=== PATIENT | male | born 1945 | race Caucasian/White ===

== ENCOUNTER → 2021-11-06 11:33 | Outpatient (CLI) | payer MEDICARE, OTHER, SELFPAY ==
--- NOTE | 2021-11-06 11:46 | DI.CT.S_ITS ---
PROCEDURE: CT SINUS SCREEN WO CON INDICATIONS: Chronic pansinusitis TECHNIQUE: Noncontrast 3.0 mm axial images acquired from the frontal sinuses to the mid-sella, with coronal and sagittal reformats. For radiation dose reduction, the following was used: automated exposure control, adjustment of mA and/or kV according to patient size. COMPARISON: None. FINDINGS: Image quality: Excellent. Maxillary Sinuses: No bony remodeling or destruction. Sinuses are clear. Ethmoid Air Cells: No bony remodeling or destruction. Sinuses are clear. Sphenoid Sinuses: No bony remodeling or destruction. Sinuses are clear. Frontal Sinuses: The frontal sinuses are not well developed. No significant mucosal thickening can be seen. No bony remodeling is seen. Ostiomeatal Complexes: Ostiomeatal complexes are patent, yet they are constitutionally narrowed. There are no definite Xochilt cells. Miscellaneous: Visualized intra-orbital contents are normal. 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 There is moderate rightward nasal septal deviation, with a mild rightward directed bony nasal septal spur. IMPRESSION: No significant active paranasal sinus disease is seen. Moderate rightward nasal septal deviation, with a rightward directed bony nasal septal spur. 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 on 11/06/2021 at 11:39 Approved by: Armando Payne M.D. on 11/06/2021 at 11:40
== END ==
PROVIDERS: PCP Internal Medicine; Referring Provider Otolaryngology; Visit Provider Otolaryngology
DX: J32.4 Chronic pansinusitis (principal); J34.89 Other specified disorders of nose and nasal sinuses; J34.2 Deviated nasal septum
CPT/HCPCS: 70486